=== PATIENT | female | born 1965 | race Caucasian/White ===

== ENCOUNTER 2017-02-20 17:08 | Emergency (ER) | payer OTHER ==
[~2017-02-20] VITALS: Ht 162.6 cm; Wt 107.6 kg
[~2017-02-20 17:08] MED LIST: AMLODIPINE BESYL5 M1 PO; HYDROXYZINE PAM25 MG PO; LORATADINE10 MG PO; NITROSTAT0.4 MG SL; TAM75 PO; TRAMADOL HCL50 MG PO; XANAX0.5 MG PO
[2017-02-20 20:30] VITALS: BP 129/69
== END 2017-02-20 20:30 | disposition home or self-care (01) ==
LOC: ED 17:08
DX: M54.40 Lumbago with sciatica, unspecified side (principal); E66.9 Obesity, unspecified; I10 Essential (primary) hypertension; Z88.8 Allergy status to other drugs, medicaments and biological substances
CPT/HCPCS: J1885

== ENCOUNTER 2017-02-27 03:52 | Emergency (ER) | payer OTHER ==
[2017-02-27 04:44] VITALS: BP 140/91
== END 2017-02-27 04:44 | disposition home or self-care (01) ==
LOC: ED 03:52
DX: F41.9 Anxiety disorder, unspecified (principal); I10 Essential (primary) hypertension; Z88.5 Allergy status to narcotic agent; Z88.8 Allergy status to other drugs, medicaments and biological substances
CPT/HCPCS: J2060

== ENCOUNTER 2017-03-23 12:30 | Emergency (ER) | payer OTHER ==
[~2017-03-23] VITALS: Ht 160 cm; Wt 105.9 kg
[2017-03-23 12:38] VITALS: BP 153/81
== END 2017-03-23 16:07 | disposition left against medical advice (07) ==
LOC: ED 12:30
DX: Z53.21 Procedure and treatment not carried out due to patient leaving prior to being seen by health care provider (principal)

== ENCOUNTER 2017-04-18 06:05 | Inpatient (IN) | payer OTHER ==
[2017-04-18 06:55] LABS: BASOPHIL % 0.4 % (0-2); PLATELET COUNT 334 x10^3mcL (130-400)
[2017-04-18 07:00] LABS: CALCIUM 8.7 mg/dL (8.5-10.1); CHLORIDE SERUM 101 mmol/L (98-107); CREATININE SERUM 0.8 mg/dL (0.6-1.0); GFR1 > 60 mL/min; GLUCOSE SERUM 121 mg/dL (74-106); POTASSIUM SERUM 3.9 mmol/L (3.5-5.1); SODIUM SERUM 136 mmol/L (136-145)
[2017-04-18 07:05] LABS: ALBUMIN 3.4 g/dL (3.4-5.0); ALKALINE PHOSPHATASE 115 U/L (46-116); ALT/SGPT 53 U/L (14-59); AST/SGOT 43 U/L (15-37); BILIRUBIN TOTAL 0.2 mg/dL (0.20-1.00); TOTAL PROTEIN, SERUM 7.4 g/dL (6.4-8.2)
[2017-04-18 07:24] LABS: RED CELL DISTRIBUTION WIDTH 17.4 % (11.5-14.5)
[2017-04-18] MEDS ORDERED: IBUPROFEN400 MG (07:55)
[2017-04-18] MEDS ORDERED: PAXIL10 MG (07:55)
[2017-04-18] MEDS ORDERED: GOOD SENSE OMEP20 MG (07:55)
[2017-04-18 09:38] VITALS: BP 128/96
== END 2017-04-18 10:48 | disposition left against medical advice (07) | DRG 203 ==
LOC: ED 06:05 → DU 08:31
PROVIDERS: Emergency Medicine; ADMIT Internal Medicine Pulmonary Disease
DX: R07.9 Chest pain, unspecified (principal); F41.9 Anxiety disorder, unspecified; Z90.89 Acquired absence of other organs; Z88.5 Allergy status to narcotic agent
CPT/HCPCS: 83880; J1200; J2405; J2765; J3010; J7030; Q0092

== ENCOUNTER 2017-05-30 11:23 | Emergency (ER) | payer OTHER ==
[~2017-05-30] VITALS: Ht 162.6 cm; Wt 106.8 kg
[~2017-05-30 11:23] MED LIST changes: +GOOD SENSE OMEP20 MG; +IBUPROFEN400 MG; +PAXIL10 MG
[2017-05-30 12:30] LABS: microscopic required? NO
[2017-05-30 12:41] LABS: urine erythrocyte NEGATIVE (NEGATIVE)
[2017-05-30 14:09] VITALS: BP 139/72
== END 2017-05-30 14:09 | disposition home or self-care (01) ==
LOC: ED 11:23
PROVIDERS: Emergency Medicine
DX: N83.201 Unspecified ovarian cyst, right side (principal); R10.32 Left lower quadrant pain; F41.9 Anxiety disorder, unspecified; R39.15 Urgency of urination; I10 Essential (primary) hypertension; Z88.5 Allergy status to narcotic agent; Z88.8 Allergy status to other drugs, medicaments and biological substances; Z86.59 Personal history of other mental and behavioral disorders
CPT/HCPCS: J1885

== ENCOUNTER 2017-07-03 17:10 | Emergency (ER) | payer OTHER ==
[~2017-07-03] VITALS: Ht 162.6 cm; Wt 106.6 kg
[2017-07-03 20:02] LABS: BASOPHIL % 0.4 % (0-2); PLATELET COUNT 314 x10^3mcL (130-400)
[2017-07-03 20:03] LABS: UA SPECIFIC GRAVITY >=1.030 (1.005-1.035); microscopic required? YES; urine erythrocyte NEGATIVE (NEGATIVE)
[2017-07-03 20:08] LABS: RED CELL DISTRIBUTION WIDTH 16.1 % (11.5-14.5)
[2017-07-03 20:09] LABS: CALCIUM 8.6 mg/dL (8.5-10.1); CARBON DIOXIDE 28.6 mmol/L (21-32); CHLORIDE SERUM 105 mmol/L (98-107); CREATININE SERUM 0.6 mg/dL (0.6-1.0); GFR1 > 60 mL/min; GLUCOSE SERUM 98 mg/dL (74-106); POTASSIUM SERUM 3.7 mmol/L (3.5-5.1); SODIUM SERUM 138 mmol/L (136-145)
[2017-07-03 20:14] LABS: ALBUMIN 3.4 g/dL (3.4-5.0); ALKALINE PHOSPHATASE 103 U/L (46-116); ALT/SGPT 63 U/L (14-59); AST/SGOT 92 U/L (15-37); BILIRUBIN TOTAL 0.19 mg/dL (0.20-1.00); LIPASE 120 IU/L (73-393); TOTAL PROTEIN, SERUM 7.8 g/dL (6.4-8.2)
[2017-07-03 21:19] VITALS: BP 133/83
== END 2017-07-03 21:19 | disposition home or self-care (01) ==
LOC: ED 17:10
PROVIDERS: Emergency Medicine
DX: R10.11 Right upper quadrant pain (principal); R11.2 Nausea with vomiting, unspecified; M54.9 Dorsalgia, unspecified; I10 Essential (primary) hypertension; I20.9 Angina pectoris, unspecified; Z88.5 Allergy status to narcotic agent; Z88.8 Allergy status to other drugs, medicaments and biological substances; Z88.6 Allergy status to analgesic agent; Z90.49 Acquired absence of other specified parts of digestive tract
CPT/HCPCS: 36415; J1885; Q0162

== ENCOUNTER 2017-11-13 22:44 | Emergency (ER) | payer OTHER ==
[2017-11-13 22:58] VITALS: BP 137/77
== END 2017-11-14 04:30 | disposition left against medical advice (07) ==
LOC: ED 22:44
DX: Z53.21 Procedure and treatment not carried out due to patient leaving prior to being seen by health care provider (principal)

== ENCOUNTER 2018-05-18 18:59 | Emergency (ER) | payer OTHER | END 2018-05-18 21:09 | disposition left against medical advice (07) | LOC: ED 18:59 | DX: Z53.21 Procedure and treatment not carried out due to patient leaving prior to being seen by health care provider (principal) ==

== ENCOUNTER 2018-09-21 18:57 | Emergency (ER) | payer OTHER ==
[~2018-09-21] VITALS: Ht 162.6 cm; Wt 117.0 kg
[2018-09-21 18:59] VITALS: Ht 162.6 cm; Wt 117.0 kg
[2018-09-21] MEDS ORDERED: NAPROSYN500 MG PO (19:21)
[2018-09-21] MEDS ORDERED: NEU300 PO (19:22)
[2018-09-21] MEDS ORDERED: ATIVAN1 MG PO (19:23)
[2018-09-21 21:40] VITALS: BP 132/92
== END 2018-09-21 21:40 | disposition home or self-care (01) ==
LOC: ED 18:57
DX: S30.0XXA Contusion of lower back and pelvis, initial encounter (principal); I10 Essential (primary) hypertension; F41.9 Anxiety disorder, unspecified; Z98.890 Other specified postprocedural states; Z90.49 Acquired absence of other specified parts of digestive tract; W18.2XXA Fall in (into) shower or empty bathtub, initial encounter; Z88.5 Allergy status to narcotic agent; Y93.89 Activity, other specified; Y92.89 Other specified places as the place of occurrence of the external cause; Y99.8 Other external cause status
CPT/HCPCS: J1885

== ENCOUNTER 2018-09-24 15:38 | Emergency (ER) | payer OTHER ==
[~2018-09-24] VITALS: Ht 162.6 cm; Wt 113.4 kg
[~2018-09-24 15:38] MED LIST changes: +ATIVAN1 MG PO; +NAPROSYN500 MG PO; +NEU300 PO
[2018-09-24 15:42] VITALS: Ht 162.6 cm; Wt 113.4 kg
[2018-09-24 18:51] VITALS: BP 163/90
== END 2018-09-24 18:51 | disposition home or self-care (01) ==
LOC: ED 15:38
DX: M54.16 Radiculopathy, lumbar region (principal); M51.86 Other intervertebral disc disorders, lumbar region; I10 Essential (primary) hypertension; F41.9 Anxiety disorder, unspecified; Z98.890 Other specified postprocedural states; Z90.49 Acquired absence of other specified parts of digestive tract; Z88.5 Allergy status to narcotic agent
CPT/HCPCS: J1885

== ENCOUNTER 2018-09-26 23:14 | Emergency (ER) | payer OTHER ==
[~2018-09-26] VITALS: Ht 162.6 cm; Wt 115.2 kg
[2018-09-26 23:25] VITALS: Ht 162.6 cm; Wt 115.2 kg
[2018-09-27 00:19] LABS: BASOPHIL % 0.8 % (0-2); PLATELET COUNT 293 x10^3mcL (130-400); RED CELL DISTRIBUTION WIDTH 13.7 % (11.5-14.5)
[2018-09-27 00:35] LABS: CALCIUM 9.3 mg/dL (8.5-10.1); CARBON DIOXIDE 26.2 mmol/L (21-32); CHLORIDE SERUM 101 mmol/L (98-107); CREATININE SERUM 0.7 mg/dL (0.6-1.0); GFR1 > 60 mL/min; GLUCOSE SERUM 124 mg/dL (74-106); POTASSIUM SERUM 3.8 mmol/L (3.5-5.1); SODIUM SERUM 138 mmol/L (136-145)
[2018-09-27 03:30] VITALS: BP 156/71
== END 2018-09-27 03:30 | disposition home or self-care (01) ==
LOC: ED 23:14
PROVIDERS: Emergency Medicine
DX: R20.2 Paresthesia of skin (principal); M54.5 Low back pain; F41.9 Anxiety disorder, unspecified; I10 Essential (primary) hypertension; N85.8 Other specified noninflammatory disorders of uterus; I20.9 Angina pectoris, unspecified; Z98.890 Other specified postprocedural states; Z90.49 Acquired absence of other specified parts of digestive tract; Z88.5 Allergy status to narcotic agent
CPT/HCPCS: 36415; Q9967

== ENCOUNTER 2018-10-26 09:38 | Emergency (ER) | payer OTHER ==
[~2018-10-26] VITALS: Ht 162.6 cm; Wt 112.5 kg
[2018-10-26 09:42] VITALS: Ht 162.6 cm; Wt 112.5 kg
[2018-10-26 10:07] LABS: BASOPHIL % 0.3 % (0-2); PLATELET COUNT 272 x10^3mcL (130-400); RED CELL DISTRIBUTION WIDTH 13.5 % (11.5-14.5)
[2018-10-26 10:21] LABS: CALCIUM 8.9 mg/dL (8.5-10.1); CARBON DIOXIDE 25.7 mmol/L (21-32); CHLORIDE SERUM 106 mmol/L (98-107); CREATININE SERUM 0.9 mg/dL (0.6-1.0); GFR1 > 60 mL/min; GLUCOSE SERUM 166 mg/dL (74-106); POTASSIUM SERUM 3.2 mmol/L (3.5-5.1); SODIUM SERUM 142 mmol/L (136-145)
[2018-10-26 10:26] LABS: ALBUMIN 3.8 g/dL (3.4-5.0); ALKALINE PHOSPHATASE 103 U/L (46-116); ALT/SGPT 59 U/L (14-59); AST/SGOT 53 U/L (15-37); BILIRUBIN TOTAL 0.51 mg/dL (0.20-1.00); TOTAL PROTEIN, SERUM 7.6 g/dL (6.4-8.2)
[2018-10-26 11:31] VITALS: BP 134/77
== END 2018-10-26 11:20 | disposition home or self-care (01) ==
LOC: ED 09:38
PROVIDERS: Emergency Medicine
DX: F41.9 Anxiety disorder, unspecified (principal); R07.89 Other chest pain; I10 Essential (primary) hypertension; G56.00 Carpal tunnel syndrome, unspecified upper limb; N85.8 Other specified noninflammatory disorders of uterus; Z90.89 Acquired absence of other organs; Z98.890 Other specified postprocedural states; Z88.5 Allergy status to narcotic agent
CPT/HCPCS: 36415; Q0092

== ENCOUNTER 2018-11-20 15:09 | Emergency (ER) | payer OTHER ==
[~2018-11-20] VITALS: Ht 162.6 cm; Wt 112.2 kg
[2018-11-20 15:16] VITALS: BP 157/92; Ht 162.6 cm; Wt 112.2 kg
== END 2018-11-20 17:24 | disposition home or self-care (01) ==
LOC: ED 15:09
DX: F41.9 Anxiety disorder, unspecified (principal); I10 Essential (primary) hypertension; Z90.49 Acquired absence of other specified parts of digestive tract; Z98.890 Other specified postprocedural states; Z88.6 Allergy status to analgesic agent; Z88.5 Allergy status to narcotic agent

== ENCOUNTER 2018-11-22 07:21 | Emergency (ER) | payer OTHER ==
[~2018-11-22] VITALS: Ht 162.6 cm; Wt 110.2 kg
[2018-11-22 07:30] VITALS: Ht 162.6 cm; Wt 110.2 kg
[2018-11-22 08:34] VITALS: BP 151/95
== END 2018-11-22 08:34 | disposition home or self-care (01) ==
LOC: ED 07:21
DX: F41.9 Anxiety disorder, unspecified (principal); R10.13 Epigastric pain; R11.0 Nausea; I10 Essential (primary) hypertension; Z98.890 Other specified postprocedural states; Z88.5 Allergy status to narcotic agent; Z90.49 Acquired absence of other specified parts of digestive tract

== ENCOUNTER 2018-11-25 09:26 | Emergency (ER) | payer OTHER ==
[~2018-11-25] VITALS: Ht 162.6 cm; Wt 111.1 kg
[2018-11-25 09:36] VITALS: Ht 162.6 cm; Wt 111.1 kg
[2018-11-25 10:36] VITALS: BP 140/86
== END 2018-11-25 10:36 | disposition home or self-care (01) ==
LOC: ED 09:26
DX: F41.9 Anxiety disorder, unspecified (principal); K21.9 Gastro-esophageal reflux disease without esophagitis; I10 Essential (primary) hypertension; Z88.5 Allergy status to narcotic agent; Z98.890 Other specified postprocedural states; Z90.49 Acquired absence of other specified parts of digestive tract

== ENCOUNTER 2019-07-15 09:12 | Emergency (ER) | payer OTHER ==
[~2019-07-15] VITALS: Ht 162.6 cm; Wt 113.4 kg
[2019-07-15 09:28] VITALS: Ht 162.6 cm; Wt 113.4 kg
[2019-07-15 13:59] VITALS: BP 138/75
== END 2019-07-15 13:59 | disposition home or self-care (01) ==
LOC: ED 09:12
DX: R51 Headache (principal); R11.0 Nausea; H92.02 Otalgia, left ear; I10 Essential (primary) hypertension; F41.9 Anxiety disorder, unspecified; F32.9 Major depressive disorder, single episode, unspecified; Z88.5 Allergy status to narcotic agent
CPT/HCPCS: J1100; J1200; J2765; J3475; J7030